=== PATIENT | male | born 1945 | race Caucasian/White ===

== ENCOUNTER 2020-08-25 05:16 | Emergency (ER) | payer OTHER ==
[~2020-08-25] VITALS: Ht 185.4 cm; Wt 118.0 kg
[2020-08-25] MEDS ORDERED: LORazepam 1MG TABLET PO ONE (05:30)
[2020-08-25] MEDS ORDERED: LORazepam 1MG TABLET ONE (05:49)
[2020-08-25 05:54] LABS: BASOPHILS # (AUTO) 0.03 x10^3/uL (0-0.1); BASOPHILS % (AUTO) 1 % (0-1); EOSINOPHILS # (AUTO) 0.17 x10^3/uL (0-0.4); EOSINOPHILS % (AUTO) 2 % (1-7); LYMPHOCYTES # (AUTO) 1.59 x10^3/uL (1-3.4); LYMPHOCYTES % (AUTO) 22 % (22-44); MD NO; MEAN CORPUSCULAR HEMOGLOBIN 31.1 pg (27.5-34.5); MEAN CORPUSCULAR HGB CONC 33.4 g/dL (33.2-36.2); MEAN PLATELET VOLUME 8.3 fL (7.4-10.4); MONOCYTES # (AUTO) 0.69 x10^3/uL (0.2-0.8); MONOCYTES % (AUTO) 10 % (2-9); NEUTROPHILS # (AUTO) 4.67 x10^3/uL (1.8-6.8); NEUTROPHILS % (AUTO) 65 % (42-75); PLATELET COUNT 245 x10^3/uL (130-400); RED CELL DISTRIBUTION WIDTH 14.1 % (9.4-14.8)
[2020-08-25] MEDS ORDERED: PLEASE ENTER ALLERGIES MC SCH (06:00)
[2020-08-25 06:06] LABS: ALBUMIN 3.6 g/dL (3.4-5.0); ANION GAP 6 mmol/L (5-15); CALCIUM 9.5 mg/dL (8.5-10.1); CHLORIDE 112 mmol/L (98-107); CREATININE 1.24 mg/dL (0.7-1.3)
[2020-08-25 06:45] VITALS: BP 138/88
--- NOTE | 2020-08-25 06:47 | NUR ---
D/c reviewed with pt including meds and f/u. Pt verbalizes understanding, plan to f/u with PCP and therapist
== END 2020-08-25 06:48 | disposition home or self-care (01) ==
LOC: ED 06:33
DX: F41.1 Generalized anxiety disorder (principal); F43.12 Post-traumatic stress disorder, chronic; R94.31 Abnormal electrocardiogram [ECG] [EKG]
CPT/HCPCS: 36415; 80048; 82040; 85025; 93005; 99284